=== PATIENT | female | born 2000 | race Caucasian/White ===

== ENCOUNTER 2022-12-22 15:46 | Emergency (ER) | payer OTHER, MEDICAID, SELFPAY ==
--- NOTE | ~2022-12-22 | CT_ITS ---
EXAMINATION: CT abdomen pelvis w con DATE: 12/22/2022 18:37 INDICATION: Right lower quadrant abdominal pain. Diarrhea. TECHNIQUE: Computed tomography (CT) of the abdomen and pelvis was performed with 100 mL Omnipaque 350 intravenous contrast. Automated exposure control and iterative reconstruction technique were employe d. The dose-length product was 274.78 mGy-cm. COMPARISON: None. FINDINGS: The visualized portions of the lung bases are clear without pneumonia or pleural effusion. The heart size is normal. No pericardial effusion. The liver is normal. There are changes of cholecys tectomy. The spleen, pancreas, adrenal glands, and kidneys are normal. There is an intrauterine devic e in expected position. There is a 3.9 cm cyst in right ovary. The appendix is normal. There are no d ilated loops of bowel. There are no pathologically enlarged lymph nodes. There is physiologic fluid i n the pelvis. The bones are unremarkable. IMPRESSION: 1. 3.9 cm cyst in right ovary, likely a follicular cyst. Reviewed, dictated and finalized at location E.
--- NOTE | ~2022-12-22 | US_ITS ---
EXAMINATION: US pelvic complete DATE: 12/22/2022 19:32 INDICATION: Right lower quadrant abdominal pain. Right ovarian cyst. TECHNIQUE: Multiple transabdominal sonographic images of the pelvis were obtained. COMPARISON: CT abdomen and pelvis 12/22/2022 FINDINGS: The uterus measures 8.5 x 3.5 x 4.9 cm. There is physiologic free fluid in the pelvis. The endometria l complex is not thickened. There is an intrauterine device in expected position. The right ovary martín sures 3.8 x 2.7 x 4.5 cm. The left ovary measures 2.6 x 2.3 x 2.2 cm. There is a 3.2 cm cyst in right ovary. There is normal vascular flow in the ovaries.. IMPRESSION: 1. 3.2 cm cyst in right ovary, likely a follicular cyst. 2. Intrauterine device in expected position. Reviewed, dictated and finalized at location E.
[2022-12-22 15:53] VITALS: BP 125/75; PULSE 99; RESP 16; TEMP 37; O2SAT 100
[2022-12-22 16:05] LABS: Basophils Absolute Auto 0.1 K/mm3 (0.0-0.1); Basophils Percent Auto 1.2 % (0.2-1.2); Eosinophils Absolute Auto 0.1 K/mm3 (0-0.3); Eosinophils Percent Auto 1.7 % (0-4.4); Hemoglobin 14.1 g/dL (12.0-15.0); Immature Granulocyte Absolute 0.01 K/mm3 (0.00-0.031); Immature Granulocyte Percent A 0.1 % (0-0.5); Lymphocytes Absolute Auto 1.83 K/mm3 (0.9-3.2); Lymphocytes Percent Auto 26.4 % (18.3-44.2); Mean Corpuscular HGB Conc 32.8 g/dl (32-36); Mean Corpuscular Hemoglobin 29.6 pg (26-34); Mean Corpuscular Volume 90.3 fl (80-100); Mean Platelet Volume 10.1 fl (7.4-10.4); Monocytes Absolute Auto 0.4 K/mm3 (0.1-0.6); Monocytes Percent Auto 5.9 % (2.6-8.5); Neutrophils Absolute Auto 4.5 K/mm3 (1.3-6.7); Neutrophils Percent Auto 64.7 % (45.5-73.1); Platelet Count Result 176 k/mm3 (150-375); Red Blood Count 4.76 M/mm3 (4.2-5.4); Red Cell Distribution Width 11.9 % (11.5-14.5); White Blood Count 6.9 K/mm3 (4.5-10.0)
[2022-12-22 16:16] LABS: Alanine Aminotransferase 14 U/L (6-35); Albumin Level 4.7 g/dL (3.5-5.1); Alkaline Phosphatase 50 U/L (38-126); Anion Gap 8 mmol/L (8-16); Aspartate Amino Transferase 18 U/L (14-36); Bilirubin,Total 0.6 mg/dL (0.2-1.3); Blood Urea Nitrogen 10 mg/dL (7-17); Calcium 9.4 mg/dL (8.4-10.2); Carbon Dioxide 24 mmol/L (22-30); Chloride 105 mmol/L (98-107); Estimated CRCL calculation 106 ml/min; Estimated Glomerular Filt Rate > 60; Glucose 96 mg/dL (65-110); Lipase 57 U/L (23-300); Potassium 3.9 mmol/L (3.4-5.0); Sodium 137 mmol/L (137-145)
[2022-12-22 17:42] VITALS: PULSE 63; RESP 13
[2022-12-22 17:43] VITALS: BP 113/78; PULSE 64; RESP 16; O2SAT 100
[2022-12-22 17:45] VITALS: BP 112/74; PULSE 71; RESP 18; O2SAT 100
[2022-12-22 17:52] LABS: Appearance Urine Clear (Clear); Bilirubin Urine Negative (Negative); Blood Urine Negative (Negative); Color Urine Yellow (Yellow); Glucose Urine UA Trace mg/dL (Negative); Ketones Urine Negative (Negative); Leukocyte Esterase Ur Negative LEU/UL (Negative); Nitrate Urine Negative (Negative); Protein Urine Negative (Negative); Specific Grav Ur 1.017 (1.001-1.035); Urobilinogen Urine 0.2 mg/dL (<2.0); pH Urine 5.5 (5.0-9.0)
[2022-12-22 17:56] LABS: Add Urine Microscopic? NO
--- NOTE | 2022-12-22 18:04 | ED.ABDPAIN ---
HPI - Abdominal Pain General Chief Complaint: Abdominal Pain Stated Complaint: right sided abd pain/fever Time Seen by Provider: 12/22/22 17:41 Source: patient Mode of arrival: ambulatory Limitations: no limitations History of Present Illness HPI narrative: Patient is a 22-year-old female, with PMH of previous cholecystectomy, who presents to the ED with report of right lower abdominal pain. Patient reports having pain for the last 2 days. She states pain has been fairly constant. Worse with any type of movement, walking, using her abdominal wall muscles, coughing, laughing. Slightly better when sitting still. Does not radiate anywhere particular. Patient tried taking ibuprofen without relief. She reported having subjective fevers last 2 nights and a fever of 100.3 ?F today, at prompted her presentation. She denies any nausea or vomiting, diarrhea, constipation, urinary symptoms, vaginal bleeding. She does note having diarrhea last week, but denies any since. Denies history of kidney stones, ovarian cyst. Related Data Allergies Allergy/AdvReac Type Severity Reaction Status Date / Time No Known Allergies Allergy Verified 12/22/22 18:22 Review of Systems Review of Systems: CONSTITUTIONAL: See HPI. CARDIOVASCULAR: Denies chest pain. RESPIRATORY: Denies dyspnea. GASTROINTESTINAL: See HPI. GENITOURINARY: Denies dysuria or hematuria. SKIN: Denies rash or itching. MUSCULOSKELETAL: Denies back pain, joint pain, or myalgia. All systems reviewed & are unremarkable except as noted in HPI and below [facility] Surgical History Surgical History (Updated 12/22/22 @ 18:20 by Mandy Carrillo PA-C) History of cholecystectomy Exam Narrative: GENERAL: Well appearing, thin, non-toxic, in no acute distress. HEAD: Normocephalic, atraumatic. NECK: Supple. No adenopathy, no masses. RESPIRATORY: Airway patent, respirations nonlabored. Clear to auscultation bilaterally, no rales, rhonchi, wheezing. CARDIOVASCULAR: Regular rate and rhythm without murmurs, rubs, or gallops. Radial pulses 2+ and equal bilaterally. ABDOMINAL: Soft, mild tenderness in right lower abdomen, nondistended, no hepatosplenomegaly. Normoactive BS. MUSCULOSKELETAL: Moves all extremities. Strength/ROM intact without gross deformities. SKIN: Warm, dry, normal color. No rashes. NEURO: A&O X3. Speech clear. Cranial nerves II-XII grossly intact. Steady gait. No ataxic movements. PSYCHIATRIC: Appropriate mood and affect. Normal interaction. Course Vital Signs Vital signs: Vital Signs Temperature 98.6 F 12/22/22 15:53 Pulse Rate 99 12/22/22 15:53 Respiratory Rate 16 12/22/22 15:53 Blood Pressure 125/75 12/22/22 15:53 Pulse Oximetry 100 12/22/22 15:53 Oxygen Delivery Room Air 12/22/22 15:53 Temperature 98.6 F 12/22/22 15:53 Pulse Rate 71 12/22/22 17:45 Respiratory Rate 18 12/22/22 17:45 Blood Pressure 112/74 12/22/22 17:45 Pulse Oximetry 100 12/22/22 17:45 Oxygen Delivery Room Air 12/22/22 15:53 MDM - Abdominal Pain MDM Narrative Medical decision making narrative: Patient presented to ED with 2-day history of right lower abdominal pain, subjective fevers at home. Vital stable upon arrival. Patient afebrile. CBC without leukocytosis or anemia. CMP unremarkable. Urinalysis with trace glucose, no other signs of infection. Glucose on CMP at 96. Patient without history of diabetes. Patient did not want anything for pain in the ED. CT abd/pelvis obtained and showing right ovarian cyst. Normal appendix. Pelvic ultrasound obtained to rule out torsion, again showing right-sided ovarian cyst, no evidence for torsion. Good vascular flow noted to both ovaries. Patient updated on imaging results. She has remained stable throughout ED stay. She has an [employer] in [place], [place] that she follows with. Advised patient to make follow-up appointment, given return precautions. Patient discharged in stable condit
[2022-12-22 20:20] VITALS: BP 112/65; PULSE 73; O2SAT 99
== END 2022-12-22 20:21 | disposition home or self-care (01) ==
PROVIDERS: Emergency Medicine; Emergency Provider Physician Assistant
DX: N83.201 Unspecified ovarian cyst, right side (principal)
CPT/HCPCS: 36415; 74177; 76856; 80053; 81003; 81025; 83690; 85025; 99284; Q9967

== ENCOUNTER 2023-09-15 19:43 | Emergency (ER) | payer OTHER, MEDICAID, SELFPAY ==
--- NOTE | ~2023-09-15 | CT_ITS ---
EXAMINATION: CT abdomen pelvis w con DATE: 09/15/2023 21:26 INDICATION: abd pain TECHNIQUE: Computed tomography (CT) of the abdomen and pelvis was performed with 100 mL Omnipaque-350 intravenous contrast. Automated exposure control and iterative reconstruction technique were employe d. The dose-length product was 236.47 mGy-cm. COMPARISON: 12/22/2022, report only. FINDINGS: Lower thorax: Unremarkable Liver: Enlarged. Biliary/Gallbladder: Gallbladder is absent. No bile duct dilation. Pancreas: No mass or duct dilation. Spleen: Normal. Adrenals:No mass. Kidneys: No suspicious mass, obstructing stone, or hydronephrosis. GI tract: Mild distal esophageal and gastric wall edema. Mild colonic wall edema extending from the h epatic flexure to the distal sigmoid. No small or large bowel dilation. Normal appendix. Mesentery/Peritoneum: No ascites, mass, or free air. Retroperitoneum: No mass. Pelvis: Empty urinary bladder. Normal uterus. IUD, in good position. Normal bilateral ovaries. Soft Tissues: Soft tissues and body wall unremarkable. Bones: No acute osseous finding. IMPRESSION: Mild esophagitis/gastritis. Hepatomegaly. Conclusion Mild wall edema in the left colon may reflect a component of colitis in the appropriate cl inical context. Reviewed, dictated and finalized at location K. IMPRESSION: Mild esophagitis/gastritis. Hepatomegaly. Conclusion Mild wall edema in the left colon may reflect a component of colitis in the appropriate clinical context.
[2023-09-15 19:45] VITALS: BP 117/64; PULSE 77; RESP 18; TEMP 36.4; O2SAT 100
[2023-09-15 20:32] LABS: Basophils Absolute Auto 0.1 K/mm3 (0.0-0.1); Basophils Percent Auto 1.2 % (0.2-1.2); Eosinophils Absolute Auto 0.1 K/mm3 (0-0.3); Hematocrit 44.2 % (37.0-47.0); Hemoglobin 14.6 g/dL (12.0-15.0); Immature Granulocyte Absolute 0.01 K/mm3 (0.00-0.031); Immature Granulocyte Percent A 0.2 % (0-0.5); Lymphocytes Absolute Auto 2.47 K/mm3 (0.9-3.2); Lymphocytes Percent Auto 37.7 % (18.3-44.2); Mean Corpuscular Hemoglobin 29.5 pg (26-34); Mean Corpuscular Volume 89.3 fl (80-100); Mean Platelet Volume 10.1 fl (7.4-10.4); Monocytes Absolute Auto 0.5 K/mm3 (0.1-0.6); Monocytes Percent Auto 7.8 % (2.6-8.5); Neutrophils Absolute Auto 3.4 K/mm3 (1.3-6.7); Neutrophils Percent Auto 51.1 % (45.5-73.1); Platelet Count Result 167 k/mm3 (150-375); Red Blood Count 4.95 M/mm3 (4.2-5.4); Red Cell Distribution Width 12.2 % (11.5-14.5); White Blood Count 6.6 K/mm3 (4.5-10.0)
[2023-09-15 20:42] LABS: Alanine Aminotransferase 13 U/L (6-35); Albumin Level 4.7 g/dL (3.5-5.1); Alkaline Phosphatase 52 U/L (38-126); Anion Gap 7 mmol/L (4-12); Aspartate Amino Transferase 18 U/L (14-36); Bilirubin,Total 0.7 mg/dL (0.2-1.3); Blood Urea Nitrogen 14 mg/dL (7-17); Calcium 9.8 mg/dL (8.4-10.2); Carbon Dioxide 26 mmol/L (22-30); Chloride 105 mmol/L (98-107); Estimated CRCL calculation 96 ml/min; Estimated Glomerular Filt Rate > 60; Glucose 93 mg/dL (65-110); INR 1.1; Prothrombin Time 14.8 Seconds (11.1-14.7); Sodium 138 mmol/L (137-145)
[2023-09-15 20:43] LABS: Partial Thromboplastin Time 31.2 Seconds (22.3-36.8)
--- NOTE | 2023-09-15 21:00 | ED.GENADULT ---
HPI - General Adult General Chief complaint: GI Bleed Stated complaint: BLOOD IN STOOL Time Seen by Provider: 09/15/23 20:20 History of Present Illness HPI narrative: Patient is a 23-year-old female who presents to the emergency department this evening complaining of lower abdominal pain, and bloody stools. Patient admits that she has been dealing with these symptoms for the past 3 years and approximately 1 year ago she had some testing performed by boat dispatcher to evaluate for herbal down syndrome. Patient admits that she gets these episodes of intermittent diarrhea and constipation associated with lower abdominal cramping. Patient admits that sometimes the pain is so severe bringing her to tears. Patient states that she has only noticed bloody stools twice during this period, today and 1 other time. Patient admits that this is the 1st time she presents the emergency department for these symptoms and states that she does not believe she has ever had a CT of her abdomen. Patient is currently in the process to be seen by boat dispatcher to rule out Crohn's/ulcerative colitis. Patient denies any family history of any inflammatory bowel disease. she admits to intermittent episodes of nausea and vomiting, denies any hematemesis. Patient states that the pain is a 2/10 at the moment. She denies any recent fevers or chills, exposure to sick contacts, and thrown denying any additional symptoms at this time. There are no other modifying, alleviating, or precipitating factors. Related Data Allergies Allergy/AdvReac Type Severity Reaction Status Date / Time Penicillins Allergy Rash Verified 09/15/23 19:53 Review of Systems Review of Systems: All systems are reviewed and are negative unless stated otherwise in the HPI. [facility] Surgical History Surgical History History of cholecystectomy Exam Narrative: General: Alert, awake, afebrile, in no acute distress. HEENT: PERRL, no rhinorrhea, no post nasal drip, oropharynx clear. Neck: Trachea midline, no JVD, no lymphadenopathy. Cardiovascular: Regular rate and rhythm, no murmurs, rubs or gallops, no peripheral edema. Respiratory: Clear to auscultation bilaterally, no tachypnea, no wheezing, no rhonchi, no rubs, no respiratory distress. Abdomen: Soft, nontender, nondistended, no rebound, no guarding, no peritoneal signs. Rectal: Exam performed with female nurse advertising analyst revealing good rectal tone, no evidence of external hemorrhoids, no anal fissures, fecal occult blood test negative. Musculoskeletal: No joint swelling or deformity, normal muscle tone. Skin: No rashes or petechia, no signs of infection. Psychiatric: Alert and oriented, normal behavior and judgment for situation. Neurological: Alert and oriented to person, place, and time. Follows all commands. No focal deficits, speech is clear and fluent. Course Vital Signs Vital signs: Vital Signs Temperature 97.6 F 09/15/23 19:45 Pulse Rate 77 09/15/23 19:45 Respiratory Rate 18 09/15/23 19:45 Blood Pressure 117/64 09/15/23 19:45 Pulse Oximetry 100 09/15/23 19:45 Oxygen Delivery Room Air 09/15/23 19:45 Temperature 97.6 F 09/15/23 19:45 Pulse Rate 76 09/15/23 22:28 Respiratory Rate 17 09/15/23 22:28 Blood Pressure 120/76 09/15/23 22:28 Pulse Oximetry 100 09/15/23 22:28 Oxygen Delivery Room Air 09/15/23 19:45 Medical Decision Making MDM Narrative Medical decision making narrative: The patient was evaluated by myself in the emergency department. History is obtained from patient who is an independent historian and physical exam was performed. External medical records were reviewed at this time. IV was established and pertinent tests were ordered. Patient was administered a 1 L IV fluid bolus with normal saline and 4 mg of IV Zofran. Laboratory results obtained revealing no acute process. Imaging studies obtai
[2023-09-15 21:07] LABS: Appearance Urine Clear (Clear); Bacteria Urine 4+ /hpf; Bilirubin Urine Negative (Negative); Blood Urine 1+ (Negative); Color Urine Yellow (Yellow); Glucose Urine UA Trace mg/dL (Negative); Ketones Urine Negative (Negative); Leukocyte Esterase Ur Trace LEU/UL (Negative); Nitrate Urine Positive (Negative); Non Pathogenic Casts 0-2; Protein Urine Negative (Negative); RBC Urine 0-2 /hpf (0-2); Specific Grav Ur 1.024 (1.001-1.035); Squamous Epithelial Cell Urine Occasional /hpf (Few); Urobilinogen Urine 0.2 mg/dL (<2.0); pH Urine 5.5 (5.0-9.0)
[2023-09-15 21:08] LABS: SPREG INTERNAL CONTROL Positive; Serum Qual hCG Negative
[2023-09-15 21:10] LABS: Add Urine Microscopic? YES
[2023-09-15] MEDS: ONDANSETRON INJ 4 MG/2 ML VIAL IV PUSH (21:19)
[2023-09-15] MEDS: SODIUM CHLORIDE 0.9% IV 1,000 ML 999 ML IV CONT (21:19)
[2023-09-15 22:28] VITALS: BP 120/76; PULSE 76; RESP 17; O2SAT 100
== END 2023-09-15 22:31 | disposition home or self-care (01) ==
PROVIDERS: Emergency Provider Emergency Medicine
DX: K29.70 Gastritis, unspecified, without bleeding (principal); K20.90 Esophagitis, unspecified without bleeding; K52.9 Noninfective gastroenteritis and colitis, unspecified; N39.0 Urinary tract infection, site not specified; Z90.49 Acquired absence of other specified parts of digestive tract
CPT/HCPCS: 36415; 74177; 80053; 81001; 81025; 84703; 85025; 85610; 85730; 86850; 86900; 86901; 87077; 87086; 87088; 87186; 96361; 96374; 99284; J2405; J7030; Q9967

== ENCOUNTER 2023-10-10 16:47 | Outpatient (NON) | payer OTHER, SELFPAY ==
[2023-10-10 18:00] LABS: Toxigenic C. Diff NEGATIVE (NEGATIVE)
[2023-10-16 21:33] LABS: Pancreatic Elastase, Stool >500 mcg/g
[2023-10-16 23:04] LABS: Calprotectin, Stool 31 mcg/g
== END 2023-10-10 16:48 | disposition home or self-care (01) ==
LOC: ANHLAB 16:48
PROVIDERS: Visit Provider Nurse Practitioner
DX: K52.9 Noninfective gastroenteritis and colitis, unspecified (principal); R10.31 Right lower quadrant pain; R10.32 Left lower quadrant pain
CPT/HCPCS: 82653; 83993; 87045; 87269; 87427; 87449; 87493

== ENCOUNTER 2023-11-30 00:37 | Day surgery (SDC) | payer OTHER, SELFPAY ==
[2023-11-16 11:05] VITALS: BMI 20.3
--- NOTE | 2023-11-30 12:23 | P.PNAN_ITS ---
Anes - Initial Pre Proc Eval Procedure: Operation Date: 11/30/23 13:30 Proposed Procedures p Esophagogastroduodenoscopy & Colonoscopy - Marcial Roca MD Date/Time: 11/30/23 12:23 Surgeon: Marcial Roca MD Pre Op Diagnosis: Noninfective gastroenteritis and colitis unspecifi Patient Data Age: 23 Gender: F Height: 1.7 m Weight: 59 kg Allergies Allergy/AdvReac Type Severity Reaction Status Date / Time Penicillins Allergy Intermediate Hives Verified 11/30/23 13:07 Home Medications Medication Instructions Recorded Confirmed Type ondansetron HCl 4 mg tablet 4 - 8 mg PO Q8H PRN nausea and 10/01/23 11/16/23 Rx vomiting #90 tabs pantoprazole 40 mg tablet,delayed 40 mg PO QAM #30 tabs 10/01/23 11/16/23 Rx release Iron 2 gummy PO DAILY 11/16/23 11/16/23 History ascorbic acid (vitamin C) 1,000 mg 1 g PO DAILY 11/16/23 11/16/23 History tablet cholecalciferol (vitamin D3) 25 25 mcg PO DAILY 11/16/23 11/16/23 History mcg (1,000 unit) tablet (Vitamin D3) cranberry 1,000 mg capsule 1,000 mg PO DAILY 11/16/23 11/16/23 History cyanocobalamin (vitamin B-12) 1,000 mcg PO DAILY 11/16/23 11/16/23 History 1,000 mcg tablet dicyclomine 20 mg tablet 20 mg PO .every 6 hours PRN PRN 11/16/23 11/16/23 Hi story abdominal pain Patient hx anesthesia problems: none Family hx anesthesia problems: none Results Review: All pre-operative results and documents have been reviewed as part of the pre- operative evaluation. [facility] Past Medical History Medical History (Updated 11/30/23 @ 12:24 by Dylan Orozco DO) GERD (gastroesophageal reflux disease) Surgical History Surgical History History of cholecystectomy Social History Social History Smoking status: Never smoker Alcohol intake: current Substance use: never Substance use type: does not use Living arrangements: with family Spiritual care concerns: No Anes - Eval Final PreProcedure Day of Procedure 11/30/23 12:23 Patient weight: normal Heart: regular rate and rhythm Lungs: clear to auscultation and normal air movement Airway: Mallampati scale class II Neurological: alert and oriented Last oral intake: >/= 8 hours ASA classification: II Emergent: no Anesthetic plan: proceed Anesthesia type and monitoring: general GIVS and standard monitoring Results Review: All pre-operative results and documents have been reviewed as part of the pre- operative evaluation. Informed Consent: The patient's anesthetic plan and its attendant risks and benefits were discussed with the patient/family/POA. Questions were solicited and answers provided to the satisfaction of the patient/family/POA.
[2023-11-30 13:08] VITALS: BP 124/75; PULSE 88; RESP 20; TEMP 36.3; O2SAT 100
[2023-11-30] MEDS: LACTATED RINGERS 1,000 ML 150 ML IV CONT (13:21)
--- NOTE | 2023-11-30 14:09 | PM.HPGS ---
History of Present Illness History of Present Illness Consent: Risks, benefits, and alternatives have been discussed and questions answered. Patient agrees to proceed with procedure. Chief complaint: Noninfective gastroenteritis and colitis unspecifi Narrative: Peterson Goncalves is a 23 year old female with diarrhea for 4 years, had colonoscopy about 2 years ago, also nausea, gerd and abdominal discomfort, recent office visit and prescribed zofran, pantoprazole and bentyl as needed, she can not tell if making much of difference. Also she had cholecystectomy. Review of Systems Review of Systems: All systems reviewed & are unremarkable except as noted in HPI and below PMFSH Past Medical History Medical History (Updated 11/30/23 @ 12:24 by Dylan Orozco, ) GERD (gastroesophageal reflux disease) Surgical History Surgical History History of cholecystectomy Social History Social History Smoking status: Never smoker Alcohol intake: current Substance use: never Substance use type: does not use Living arrangements: with family Spiritual care concerns: No Meds Home Medications and Allergies Home Medications Medication Instructions Recorded Confirmed Type ondansetron HCl 4 mg tablet 4 - 8 mg PO Q8H PRN nausea and 10/01/23 11/16/23 Rx vomiting #90 tabs pantoprazole 40 mg tablet,delayed 40 mg PO QAM #30 tabs 10/01/23 11/16/23 Rx release Iron 2 gummy PO DAILY 11/16/23 11/16/23 History ascorbic acid (vitamin C) 1,000 mg 1 g PO DAILY 11/16/23 11/16/23 History tablet cholecalciferol (vitamin D3) 25 25 mcg PO DAILY 11/16/23 11/16/23 History mcg (1,000 unit) tablet (Vitamin D3) cranberry 1,000 mg capsule 1,000 mg PO DAILY 11/16/23 11/16/23 History cyanocobalamin (vitamin B-12) 1,000 mcg PO DAILY 11/16/23 11/16/23 History 1,000 mcg tablet dicyclomine 20 mg tablet 20 mg PO .every 6 hours PRN PRN 11/16/23 11/16/23 History abdominal pain Allergies Allergy/AdvReac Type Severity Reaction Status Date / Time Penicillins Allergy Intermediate Hives Verified 11/30/23 13:07 Vital Signs Vital Signs - 24 hr 11/30/23 13:08 Temperature 97.4 F L Pulse Rate 88 Respiratory Rate 20 Blood Pressure 124/75 Pulse Oximetry 100 Oxygen Delivery Room Air Exam Const: General: comfortable and no acute distress HENMT: Face/Nose/Sinus: Normal nares present Eyes: General: appearance normal, both eyes and all related structures Neck: Neck: no JVD Resp: Auscultation: clear to auscultation bilaterally Cardio: Rate: regular rate Rhythm: regular rhythm GI: Inspection: non-distended GI Palp: Yes Soft to palpation Skin: General skin exam: normal color Neuro: General: gait normal Speech: normal speech Extrem: General: normal to inspection Psych: Mental Status: mental status grossly normal Assessment and Plan Assessment and plan (1) Nausea and vomiting: Code(s): R11.2 - Nausea with vomiting, unspecified Status: Acute Assessment and Plan: egd with bx (2) Chronic diarrhea: Code(s): K52.9 - Noninfective gastroenteritis and colitis, unspecified Status: Acute Assessment and Plan: colonoscopy with bx (3) GERD (gastroesophageal reflux disease): Code(s): K21.9 - Gastro-esophageal reflux disease without esophagitis Status: Acute
--- NOTE | 2023-11-30 14:25 | SUR.OPER ---
EGD start 1417 end 1420, Colonoscopy start 1425
[2023-11-30 14:37] VITALS: BP 99/62; PULSE 79; RESP 16; O2SAT 100
[2023-11-30 14:47] VITALS: BP 100/64; PULSE 76; RESP 17; O2SAT 100
[2023-11-30 14:57] VITALS: BP 116/71; PULSE 81; RESP 16; O2SAT 100
== END 2023-11-30 15:15 | disposition home or self-care (01) ==
PROVIDERS: Referring Provider Nurse Practitioner; Visit Provider Internal Medicine Gastroenterology
PROC: 0DJ08ZZ Inspection of Upper Intestinal Tract, Via Natural or Artificial Opening Endoscopic (ICD-10-PCS; CPT 43235; principal; 2023-11-30 13:30)
DX: K29.50 Unspecified chronic gastritis without bleeding (principal); K29.80 Duodenitis without bleeding; K21.9 Gastro-esophageal reflux disease without esophagitis; K64.8 Other hemorrhoids
CPT/HCPCS: 43239; 45380; 88305; J2704; J7120